=== PATIENT | female | born 1995 | race Caucasian/White ===

== ENCOUNTER 2019-09-26 19:18 | Emergency (ER) | payer OTHER ==
[~2019-09-26] VITALS: Ht 160 cm; Wt 57.2 kg
[2019-09-26] MEDS ORDERED: APTIOM800 MG (19:23)
[2019-09-26] MEDS ORDERED: KEPPRA1000 MG (19:23)
[2019-09-26] MEDS ORDERED: CLOBAZAM10 MG (19:23)
[2019-09-26] MEDS ORDERED: TIROSINT50 MCG (19:24)
== END 2019-09-26 23:00 | disposition home or self-care (01) ==
LOC: ER 19:18
DX: G40.802 Other epilepsy, not intractable, without status epilepticus (principal)